=== PATIENT | female | born 1985 ===

== ENCOUNTER → 2021-01-26 | Outpatient (CLI) | payer OTHER | END | disposition home or self-care (01) | LOC: RX STUDY 09:33 | DX: R10.2 Pelvic and perineal pain (principal); N80.3 Endometriosis of pelvic peritoneum ==

== ENCOUNTER 2021-04-27 12:54 | Outpatient (CLI) | payer OTHER | END 2021-04-27 13:50 | disposition home or self-care (01) | LOC: PRENATAL 12:54 | PROVIDERS: ATTEND Obstetrics & Gynecology Maternal & Fetal Medicine | DX: O36.80X0 Pregnancy with inconclusive fetal viability, not applicable or unspecified (principal); O09.529 Supervision of elderly multigravida, unspecified trimester; O34.10 Maternal care for benign tumor of corpus uteri, unspecified trimester ==

== ENCOUNTER 2021-06-08 13:03 | Outpatient (CLI) | payer OTHER | END 2021-06-08 14:15 | disposition home or self-care (01) | LOC: PRENATAL 13:03 | PROVIDERS: ATTEND Obstetrics & Gynecology Maternal & Fetal Medicine | DX: O09.529 Supervision of elderly multigravida, unspecified trimester (principal); O35.0XX0 Maternal care for (suspected) central nervous system malformation in fetus, not applicable or unspecified; O09.299 Supervision of pregnancy with other poor reproductive or obstetric history, unspecified trimester; O99.210 Obesity complicating pregnancy, unspecified trimester ==